=== PATIENT | male | born 1990 | race Caucasian/White ===

== ENCOUNTER 2019-03-01 15:30 | Inpatient (IN) | payer SELFPAY | END 2019-03-04 14:03 | disposition home or self-care (01) | LOC: ED 15:30 → MU 03-04 14:03 → ED 15:30 → MU 03-02 15:05 → ED 15:30 → DU 03-02 19:23 → ED 15:30 → DU 03-02 19:23 → ED 15:30 → DU 03-02 19:23 → ED 15:30 → MU 03-02 19:35 → ED 15:30 → MU 03-02 19:35 → ED 15:30 → MU 03-02 19:35 ==